=== PATIENT | male | born 1990 | race Asian ===

== ENCOUNTER 2017-08-25 18:05 | Emergency (ER) | payer SELFPAY ==
[2017-08-25 18:19] VITALS: BP 144/87
--- NOTE | 2017-08-25 18:57 | UC ---
Lower Extremity/Ankle HPI - HPI Summary HPI Summary: 27 y/o male with no PMH, no medications who presents with L ankle injury. on , the patinet stepped off a curb, believed had a pronation injury. + pain, + swelling, + bruising. was able to walk on ankle with moderate pain, however went out all weekend partying and drinking ETOH, continued to walk on it "stomping" on it, and now increased pain, swelling. no treatment, no - History of Current Complaint Chief Complaint: UCLowerExtremity Stated Complaint: ANKLE INJURY Time Seen by Provider: 08/25/17 18:10 Hx Obtained From: Patient Onset/Duration: Sudden Onset, Lasting Days, Worse Since - friday Severity Initially: Mild Severity Currently: Moderate Pain Intensity: 6 Pain Scale Used: 0-10 Numeric - Allergies/Home Medications Allergies/Adverse Reactions: Allergies Allergy/AdvReac Type Severity Reaction Status Date / Time No Known Allergies Allergy Verified 08/25/17 18:19 PMH/Surg Hx/FS Hx/Imm Hx Previously Healthy: Yes - Surgical History Surgical History: None - Social History Alcohol Use: Weekly Substance Use Type: None Smoking Status (MU): Never Smoked Tobacco Review of Systems Constitutional: Negative Skin: Negative Eyes: Negative Respiratory: Negative Cardiovascular: Negative Gastrointestinal: Negative Genitourinary: Negative Motor: Decreased ROM Musculoskeletal: Arthralgia, Decreased ROM, Edema, Myalgia Neurological: Negative Psychological: Negative Is Patient Immunocompromised?: No All Other Systems Reviewed And Are Negative: Yes Physical Exam Triage Information Reviewed: Yes Appearance: Well-Appearing, No Pain Distress, Well-Nourished Vital Signs: Initial Vital Signs Temp 98.6 F 08/25/17 18:12 Pulse 75 08/25/17 18:12 Resp 16 08/25/17 18:12 BP 144/87 08/25/17 18:12 Pulse Ox 98 08/25/17 18:12 Vital Signs Reviewed: Yes Eye Exam: Normal Musculoskeletal: Positive: ROM Intact, Edema @ - med, lat anter ankle. - achillies, TTP over med, lat mal, no tenderness with ROM against resistence, full ROM, + edema extending to mid calf, + echymosis med/ lat, ant ankle, mild. TTP over [place] joint Neurological Exam: Normal Neurological: Positive: Other: - full ROM with inv, evr, DF/PF, abd, add L foot Psychological Exam: Normal Skin Exam: Normal Diagnostics - Laboratory Diagnostic Studies Completed/Ordered: radiograph L ankle- 1. DIFFUSE SOFT TISSUE SWELLING. 2. PROBABLE NONDISPLACED TINY AVULSION FRACTURE FRAGMENT ARISING FROM THE TIP OF THE. MEDIAL MALLEOLUS. Lower Extremity Course/Dx - Course Course Of Treatment: Possible avulsion fracture from med mal- CAM boot placed, patient NWB L LE, follow up with ortho within 1 week for repeat eval, x-rays. crutches, motrin for pain - Differential Dx/Diagnosis Provider Diagnoses: avulsion fracture medial malleolus., L ankle sprain Discharge - Sign-Out/Discharge Documenting (check all that apply): Discharge - Discharge Plan Condition: Good Disposition: HOME Patient Education Materials: Ankle Sprain (ED), R.I.C.E. Treatment (ED), Ibuprofen (By mouth) Forms: *School Release Referrals: [facility] - [place] YOUNG [Primary Care Provider] - Gerry Fong MD [Medical Doctor] - Additional Instructions: - Elevate, ice ankle frequently - Follow up with ortho/ Shannan within 1 week - Motrin/ Ibuprofen as needed for pain - Non-weight bearing L ankle until cleared by ortho - Return to urgent care, ER with increased pain, swelling, cool toes, numbness/ tingling - Billing Disposition and Condition Condition: GOOD Disposition: HOME
--- NOTE | 2017-08-25 19:15 | RAD ---
INDICATION: Left ankle injury. TECHNIQUE: 3 views of the left ankle were obtained. FINDINGS: There is diffuse soft tissue swelling. There is suggestion of a tiny 2 mm nondisplaced avulsion fracture fragment arising from the tip of the medial malleolus. No other fractures are seen. Joint spaces appear maintained. IMPRESSION: 1. DIFFUSE SOFT TISSUE SWELLING. 2. PROBABLE NONDISPLACED TINY AVULSION FRACTURE FRAGMENT ARISING FROM THE TIP OF THE MEDIAL MALLEOLUS.
== END 2017-08-25 19:38 | disposition home or self-care (01) ==
LOC: UCEAST 18:05
DX: S93.402A Sprain of unspecified ligament of left ankle, initial encounter (principal); X58.XXXA Exposure to other specified factors, initial encounter; Y93.01 Activity, walking, marching and hiking; Y92.480 Sidewalk as the place of occurrence of the external cause
CPT/HCPCS: 99202; G0463